=== PATIENT | male | born 1980 | race Caucasian/White ===

== ENCOUNTER 2022-06-17 10:49 | Emergency (ER) | payer SELFPAY ==
[~2022-06-17] VITALS: Ht 182.9 cm; Wt 95.2 kg
[2022-06-17] MEDS ORDERED: VALA500 PO ×2 (11:25→11:33)
[2022-06-17] MEDS ORDERED: Cleocin HCl150 MG PO ×2 (11:25→11:33)
== END 2022-06-17 12:07 | disposition home or self-care (01) ==
LOC: ER 10:49
DX: B02.9 Zoster without complications (principal); L03.211 Cellulitis of face
CPT/HCPCS: 99282